=== PATIENT | female | born 1990 | race Caucasian/White ===

== ENCOUNTER 2016-08-21 04:15 | Emergency (ER) | payer OTHER ==
[2016-08-21 04:24] VITALS: TEMP 98.1; BMI 24.9
--- NOTE | 2016-08-21 04:29 | PDOC ---
History of Present Illness - General Chief Complaint: Pain, Acute Stated Complaint: ABDOMINAL PAIN Time Seen by Provider: 08/21/16 04:26 History Source: Patient Exam Limitations: No Limitations - History of Present Illness Initial Comments: 08/21/16 04:30 This is a 25-year-old female who comes in complaining of 3 days now progressive abdominal pain. Patient said she also has had some nausea and vomiting. Patient with some anorexia and fevers. Patient denies any chills. Or shortness of breath. Patient denies any urinary complaints of frequency, dysuria. Patient is sexually active but denies any vaginal discharge or odor. Patient denies any history of sexually transmitted diseases. PAST MEDICAL HISTORY: no significant history PAST SURGICAL HISTORY: no significant history FAMILY HISTORY: no pertinant history SOCIAL HISTORY: Pt lives with family and is employed. MEDICATIONS: reviewed ALLERGIES: As per nursing notes Review of Systems General: No fevers or chills, no weakness, no weight loss HEENT: No change in vision. No sore throat,. No ear pain CardioVascular: No chest pain or shortness of breath Respiratory:No cough, or wheezing. Gastrointestinal: no nausea, vomitting, diarrhea or constipation, No rectal bleeding, abdominal pain as per history of present illness Genitourinary: No dysuria, hematuria, or frequency Musculoskeletal: No joint or muscle pain or swelling Neurologic: No headache, vertigo, dizziness or loss of consciousness Psychiatric: nor depression Skin: No rashes or easy bruising Endocrine: no increased thirst or abnormal weight change Allergic: no skin or latex allergy All other systems reviewed and normal Exam: General: Well-nourished well-developed individual, no acute distress HEENT: Throat: Normal, tonsils normal, no erythema or exudate Neck: Supple, no meningeal signs, no lymphadenopathy Eyes::Pupils equal reactive and round, extraocular motion intact Chest: Nontender to palpation Cardiac: S1-S2 normal, regular rate and rhythm, no murmurs rubs or gallops Respiratory: Lungs clear to auscultation bilateral Abdomen: Soft, nondistended, normal bowel sounds, tender to palpation across lower abdomen with right lower quadrant greater than rest of abdomen. No guarding or rebound. Extremities: Warm, dry, no cyanosis, clubbing, or edema Skin: No rashes Neuro: Alert and oriented x3, nonfocal exam, grossly intact, normal gait Psych: Normal mood and affect Care of this patient was transferred to Dr. Ziegler at [address] scan is still pending.. Case discussed in detail with oncoming Emergency Physician including history, physical exam and ancillary studies. Oncoming Emergency Physician has assumed care for the patient and will complete the evaluation and treatment. Patient is aware of the plan. Pt is clinically unchanged and stable. Past History - Past Medical History Allergies/Adverse Reactions: Allergies Allergy/AdvReac Type Severity Reaction Status Date / Time No Known Allergies Allergy Verified 10/09/15 23:03 Home Medications: Ambulatory Orders Amox-Tr/K Cl [Augmentin - 500Mg Tablet] 1 tab PO TID #21 tab 08/21/16 Anemia: No Asthma: No Cancer: No CVA: No COPD: No CHF: No DVT: No Dementia: No Diabetes: No Dialysis: No - Immunization History Immunization Up to Date: Yes - Psycho/Social/Smoking Cessation Hx Anxiety: No Suicidal Ideation: No Smoking History: Never smoked Have you smoked in the past 12 months: Yes Information on smoking cessation initiated: Yes 'Breaking Loose' booklet given: 08/21/16 Hx Alcohol Use: No Drug/Substance Use Hx: No Substance Use Type: None Abd/GI Specific PMHX - Complaint Specific PMHX Colitis: No Diverticulitis: No Gall Bladder Disease: No GERD: No Hepatitis: No Irritable Bowel Synd (IBS): No *Physical Exam - Vital Signs Last Vital Signs Temp Pulse Resp BP Pulse Ox 98.1 F 110 H 16 122/75 100 08/21/16 04:22 08/21/16 04:22 08/21/16 04:22 08/21/16 04:22 08/21/16 04:22 ED Treatment Course - LABORATORY CBC & Chemistry Diagram: 08/21/16 04:35 08/21/16 04:35 *DC/Admit/Observation/Transfer Diagnosis at time of Disposition: Ruptured ovarian cyst, Nonspecific mesenteric adenitis - Discharge Dispostion Disposition: HOME Condition at time of disposition: Improved - Prescriptions Prescriptions: Amox-Tr/K Cl [Augmentin - 500Mg Tablet] 1 tab PO TID #21 tab - Referrals Referrals: Jana Beck MD [Staff Physician] - Olivier Bowling MD [Primary Care Provider] - 3 days Brayan Euceda MD [Staff Physician] - - Patient Instructions Printed Discharge Instructions: DI for Ovarian Cyst, DI for Abdominal Pain- Adult, DI for Mesenteric Adenitis-Adult Additional Instructions: Augmentin-one pill 3 times a day Warm compresses and rest Follow-up with [facility] early next week-call today for an appointment I am refering you to 2 [facility] MDs - call for appointment with one Followup with your primary care physician in 24-48 hours Return immediately if you worsen in any way Take your medications as directed - Post Discharge Activity Work/School Note: Back to Work
[2016-08-21] MEDS ORDERED: morphine CARPU-JECT 4 MG/1 ML DISP.SYRIN IVPUSH ONE (04:32)
[2016-08-21] MEDS ORDERED: SODIUM CHLORIDE 1,000 ML IV ONE (04:32)
[2016-08-21] MEDS ORDERED: ONDANSETRON 4 MG/2 ML VIAL IVPB ONE (04:32)
[2016-08-21] MEDS ORDERED: ONDANSETRON 4 MG/2 ML VIAL ONE (04:39)
[2016-08-21] MEDS ORDERED: morphine CARPU-JECT 10 MG/1 ML DISP.SYRIN ONE (04:39)
[2016-08-21 05:20] LABS: BASOPHIL 0.3 % (0-2.0); MCH 21.7 pg (25.7-33.7); MCHC 31.8 g/dl (32.0-36.0); MEAN CELL VOLUME 68.2 fl (80-96); MEAN PLT VOLUME 8.6 fl (7.5-11.1); NEUTROPHILS 81.3 % (42.8-82.8); PLATELET COUNT 263 K/MM3 (134-434); RDW 18.1 % (11.6-15.6); WHITE BLOOD COUNT 13.1 K/mm3 (4.0-10.0)
[2016-08-21 05:27] LABS: HYPOCHROMIA 2+; MICROCYTOSIS 1+
[2016-08-21 05:44] LABS: ALK PHOS 65 U/L (45-117); ANION GAP 10 (8-16); BILIRUBIN,TOTAL 0.3 mg/dL (0.2-1.0); CALCIUM 8.4 mg/dL (8.5-10.1); CO2 24 mmol/L (21-32); CREATININE 0.7 mg/dL (0.55-1.02); GLUCOSE,RANDOM 99 mg/dL (74-106); SGOT/AST 16 U/L (15-37); SGPT/ALT 23 U/L (12-78); TOT PROT 7.4 g/dl (6.4-8.2)
[2016-08-21 07:22] VITALS: BP 103/74; PULSE 81
--- NOTE | 2016-08-21 07:53 | PDOC ---
*Physical Exam - Vital Signs Last Vital Signs Temp Pulse Resp BP Pulse Ox 98.1 F 81 14 103/74 100 08/21/16 04:22 08/21/16 07:21 08/21/16 07:21 08/21/16 07:21 08/21/16 04:22 - Physical Exam Comments: 08/21/16 07:47 SIGN IN Sign-out received from outgoing Emergency Physician Pt interviewed and examined Ancillary studies reviewed This is a 25-year-old female who comes in complaining of 3 days now progressive abdominal pain. Patient said she also has had some nausea and vomiting. She had one episode of diarrhea Last menstrual period 3 weeks ago, normal and on time She denies any vaginal discharge spotting or bleeding She denies any dysuria urgency or frequency She denies any prior abdominal surgery To my exam There are hypoactive but present bowel sounds There is mild diffuse lower abdominal tenderness, mostly in the right lower quadrant, without guarding or rebound 08/21/16 07:59 Laboratory Results - last 24 hr 08/21/16 08/21/16 08/21/16 04:30 04:35 04:35 WBC 13.1 H RBC 4.44 Hgb 9.7 L Hct 30.3 L MCV 68.2 L MCHC 31.8 L RDW 18.1 H Plt Count 263 MPV 8.6 Neutrophils % 81.3 Lymphocytes % 11.2 Monocytes % 6.2 Eosinophils % 1.0 Basophils % 0.3 Hypochromic-Microcytic 2+ Microcytosis 1+ Sodium 139 Potassium 3.7 Chloride 105 Carbon Dioxide 24 Anion Gap 10 BUN 9 Creatinine 0.7 Creat Clearance w eGFR > 60 Random Glucose 99 Calcium 8.4 L Total Bilirubin 0.3 AST 16 ALT 23 Alkaline Phosphatase 65 Total Protein 7.4 Albumin 4.0 Urine HCG, Qual Negative Genna, surgical PA at bedside CT of the abdomen and pelvis with oral and IV contrast There are slightly prominent mesenteric lymph nodes in the right lower quadrant , possibly mesenteric adenitis There is no evidence of pneumoperitoneum, bowel obstruction, or intra-abdominal abscess There is no CT evidence of acute appendicitis or diverticulitis Examination of the pelvis demonstrates cystic changes and both ovaries with a trace amount of free fluid in the cul-de-sac on the left 08/21/16 09:12 will check pelvic us 08/21/16 10:13 Pt refuses to stay any longer to wait for US, wants to go NOW US called - still have another study they are doing now reviewed all results with pt will refer to [facility] Impression ruptured ovarian cyst mesenteric adenitis ED Treatment Course - LABORATORY CBC & Chemistry Diagram: 08/21/16 04:35 08/21/16 04:35 - ADDITIONAL ORDERS Additional order review: Laboratory Results 08/21/16 08/21/16 04:35 04:30 Sodium 139 Potassium 3.7 Chloride 105 Carbon Dioxide 24 Anion Gap 10 BUN 9 Creatinine 0.7 Creat Clearance w eGFR > 60 Random Glucose 99 Calcium 8.4 L Total Bilirubin 0.3 AST 16 ALT 23 Alkaline Phosphatase 65 Total Protein 7.4 Albumin 4.0 Urine HCG, Qual Negative 08/21/16 04:35 RBC 4.44 MCV 68.2 L MCHC 31.8 L RDW 18.1 H MPV 8.6 Neutrophils % 81.3 Lymphocytes % 11.2 Monocytes % 6.2 Eosinophils % 1.0 Basophils % 0.3 - Medications Given in the ED: ED Medications Discontinued Medications Generic Name Dose Route Start Last Admin Trade Name Freq PRN Reason Stop Dose Admin Sodium Chloride 1,000 mls @ 1,000 mls/hr 08/21/16 04:32 08/21/16 04:37 Normal Saline - IV 08/21/16 05:31 1,000 mls/hr .Q1H ONE Administration Morphine Sulfate 4 mg 08/21/16 04:32 08/21/16 04:42 Morphine Injection - IVPUSH 08/21/16 04:33 4 mg ONCE ONE Administration Ondansetron HCl 4 mg 08/21/16 04:32 08/21/16 04:43 Zofran Injection IVPB 08/21/16 04:33 4 mg ONCE ONE Administration *DC/Admit/Observation/Transfer Diagnosis at time of Disposition: Ruptured ovarian cyst, Nonspecific mesenteric adenitis - Discharge Dispostion Disposition: HOME Condition at time of disposition: Improved - Prescriptions Prescriptions: Amox-Tr/K Cl [Augmentin - 500Mg Tablet] 1 tab PO TID #21 tab - Referrals Referrals: Olivier Bowling MD [Primary Care Provider] - 3 days Jana Beck MD [Staff Physician] - Brayan Euceda MD [Staff Physician] - - Patient Instructions Printed Discharge Instructions: DI for Ovarian Cyst, DI for Mesenteric Adenitis -Adult, DI for Abdominal Pain-Adult Additional Instructions: Augmentin-one pill 3 times a day Warm compresses and rest Follow-up with [facility]ERAP[facility] early next week-call today for an appointment I am refering you to 2 [facility] THERAPIST MDs - call for appointment with one Followup with your primary care physician in 24-48 hours Return immediately if you worsen in any way Take your medications as directed - Post Discharge Activity Work/School Note: Back to Work
== END 2016-08-21 10:25 | disposition home or self-care (01) ==
LOC: FER 04:15
PROC: 3E033NZ Introduction of Analgesics, Hypnotics, Sedatives into Peripheral Vein, Percutaneous Approach (ICD-10-PCS; principal; 2016-08-21)
PROC: 3E033GC Introduction of Other Therapeutic Substance into Peripheral Vein, Percutaneous Approach (ICD-10-PCS; 2016-08-21)
PROC: 3E0337Z Introduction of Electrolytic and Water Balance Substance into Peripheral Vein, Percutaneous Approach (ICD-10-PCS; 2016-08-21)
DX: I88.0 Nonspecific mesenteric lymphadenitis (principal); N83.209 Unspecified ovarian cyst, unspecified side
CPT/HCPCS: 36415; 74177-TC; 80053; 84703; 85025; 99284-25

== ENCOUNTER 2017-11-24 23:05 | Day surgery (SDC) | payer OTHER ==
--- NOTE | 2017-11-24 23:25 | PDOC ---
History of Present Illness - General Chief Complaint: Pain, Acute Stated Complaint: GENERALIZED ABD PAIN Time Seen by Provider: 11/24/17 23:24 History Source: Patient Exam Limitations: No Limitations - History of Present Illness Initial Comments: 11/24/17 23:30 This is a 26-year-old female who comes in complaining of one day of abdominal pain initially generalized and now more right lower quadrant. Patient is also complaining of some nausea but denies any vomiting or diarrhea. Patient is noted to be febrile here in the emergency room. Patient's last menstrual period was feet. This most. Patient is sexually active patient denies any vaginal discharge. Patient denies any history of STDs in the past. Patient denies any blood in her urine. Patient denies any back or flank pain. Patient denies any history of kidney stones or family history of renal colic PAST MEDICAL HISTORY: no significant history PAST SURGICAL HISTORY: no significant history FAMILY HISTORY: no pertinant history SOCIAL HISTORY: Pt lives with family and is employed. MEDICATIONS: reviewed ALLERGIES: As per nursing notes Review of Systems General: No fevers or chills, no weakness, no weight loss HEENT: No change in vision. No sore throat,. No ear pain CardioVascular: No chest pain or shortness of breath Respiratory:No cough, or wheezing. Gastrointestinal: no nausea, vomitting, diarrhea or constipation, No rectal bleeding Genitourinary: No dysuria, hematuria, or frequency Musculoskeletal: No joint or muscle pain or swelling Neurologic: No headache, vertigo, dizziness or loss of consciousness Psychiatric: nor depression Skin: No rashes or easy bruising Endocrine: no increased thirst or abnormal weight change Allergic: no skin or latex allergy All other systems reviewed and normal Exam: General: Well-nourished well-developed individual, no acute distress HEENT: Throat: Normal, tonsils normal, no erythema or exudate Neck: Supple, no meningeal signs, no lymphadenopathy Eyes::Pupils equal reactive and round, extraocular motion intact Chest: Nontender to palpation Cardiac: S1-S2 normal, regular rate and rhythm, no murmurs rubs or gallops Respiratory: Lungs clear to auscultation bilateral Abdomen: Soft, moderate amount of pain/tenderness on palpation of the right lower quadrant, there is no guarding or rebound. Extremities: Warm, dry, no cyanosis, clubbing, or edema Skin: No rashes Neuro: Alert and oriented x3, CN II - XII intact, nonfocal exam with normal strength, normal sensation, normal reflexes, normal gait, Psych: Normal mood and affect Medical decision making this is a 26-year-old female who comes in with one day of progressive right lower quadrant pain. differential diagnosis includes appendicitis, ovarian pathology, viral etiology , renal colic, We'll obtain a workup to include CBC, comp, lipase, urine, urine test , CT abdomen and pelvis. We'll reassess and evaluate results a workup. 11/25/17 12:19 reevaluation patient feels better post IV fluids and some pain medication patient's CAT scan is pending. 02:20 Reevaluation patient remains clinically stable and unchanged. CAT scan shows acute appendicitis but no perforation patient will be admitted to surgical service for removal of her appendix in the morning. Past History - Past Medical History Allergies/Adverse Reactions: Allergies Allergy/AdvReac Type Severity Reaction Status Date / Time No Known Allergies Allergy Verified 10/09/15 23:03 Home Medications: Ambulatory Orders NK [No Known Home Medication] 11/24/17 Anemia: No Asthma: No Cancer: No CVA: No COPD: No CHF: No DVT: No Dementia: No Diabetes: No Dialysis: No - Immunization History Immunization Up to Date: Yes - Suicide/Smoking/Psychosocial Hx Smoking History: Never smoked Have you smoked in the past 12 months: Yes Number of Cigarettes Smoked Daily: 0 Information on smoking cessation initiated: No 'Breaking Loose' booklet given: 08/21/16 Hx Alcohol Use: No Drug/Substance Use Hx: No Substance Use Type: None Abd/GI Specific PMHX - Complaint Specific PMHX Colitis: No Diverticulitis: No Gall Bladder Disease: No GERD: No Hepatitis: No Irritable Bowel Synd (IBS): No *Physical Exam - Vital Signs Last Vital Signs Temp Pulse Resp BP Pulse Ox 100.3 F H 90 15 100/63 100 11/24/17 23:11 11/24/17 23:11 11/24/17 23:11 11/24/17 23:11 11/24/17 23:11 ED Treatment Course - LABORATORY CBC & Chemistry Diagram: 11/24/17 23:50 11/24/17 23:50 *DC/Admit/Observation/Transfer Diagnosis at time of Disposition: Acute appendicitis Qualifiers: Acute appendicitis type: unspecified acute appendicitis type Qualified Code(s) : K35.80 - Unspecified acute appendicitis - Discharge Dispostion Disposition: HOME Condition at time of disposition: Good Decision to Admit order: Yes - Referrals - Patient Instructions - Post Discharge Activity
[2017-11-24] MEDS ORDERED: morphine CARPU-JECT 4 MG/1 ML DISP.SYRIN IVPUSH ONE (23:29)
[2017-11-24] MEDS ORDERED: SODIUM CHLORIDE 1,000 ML IV ONE (23:29)
[2017-11-24] MEDS ORDERED: morphine SULFATE 4 MG/ML VIAL ONE (23:59)
[2017-11-25 00:12] LABS: URINE APPEARANCE CLEAR; URINE BILIRUBIN NEGATIVE (<2.0 mg/dL); URINE BLOOD NEGATIVE (NEGATIVE); URINE COLOR LTYELLOW; URINE GLUCOSE (UA) NEGATIVE (NEGATIVE); URINE KETONE NEGATIVE (NEGATIVE); URINE LEUK ESTERASE NEGATIVE (NEGATIVE); URINE NITRITE NEGATIVE (NEGATIVE); URINE PROTEIN NEGATIVE (NEGATIVE); URINE UROBILINOGEN NEGATIVE mg/dL (0.2-1.0)
[2017-11-25 00:16] LABS: HCG,QUALITATIVE URINE NEGATIVE
[2017-11-25 00:19] LABS: RBC 4.44 M/mm3 (3.60-5.2); WHITE BLOOD COUNT 13.5 K/mm3 (4.0-10.8)
[2017-11-25 00:20] LABS: BASO % 0.2 % (0-2.0); EOS % 1.4 % (0-4.5); HEMATOCRIT 30.1 % (32.4-45.2); HEMOGLOBIN 9.4 GM/dl (10.7-15.3); MCH 21.1 pg (25.7-33.7); MCHC 31.2 g/dl (32.0-36.0); MEAN CELL VOLUME 67.7 fl (80-96); MEAN PLT VOLUME 8.2 fl (7.5-11.1); MONO % 5.5 % (3.8-10.2); NEUT % 82.9 % (42.8-82.8); PLATELET COUNT 344 K/MM3 (134-434); RDW 19.4 % (11.6-15.6)
[2017-11-25 00:21] LABS: ADD RBC MORPHOLOGY YES
[2017-11-25 00:24] LABS: LIPASE 134 U/L (73-393)
[2017-11-25 00:31] LABS: ALK PHOS 59 U/L (45-117); ANION GAP 4 (8-16); BILIRUBIN,TOTAL 0.4 mg/dL (0.2-1.0); BLOOD UREA NITROGEN 17 mg/dL (7-18); CALCIUM 8.4 mg/dL (8.5-10.1); CHLORIDE 109 mmol/L (98-107); CO2 27 mmol/L (21-32); CREATININE 0.8 mg/dL (0.55-1.02); GLUCOSE,RANDOM 101 mg/dL (74-106); SGOT/AST 15 U/L (15-37); SGPT/ALT 21 U/L (12-78); SODIUM 140 mmol/L (136-145); TOT PROT 7.4 g/dl (6.4-8.2)
[2017-11-25 01:22] LABS: ANISOCYTOSIS 1+; TARGET CELLS 1+
[2017-11-25] MEDS ORDERED: PIPERACILLIN/TAZOB 3.375 GM 3.375 GM in DEXTROSE 5%-WATER - 50 ML IVPB ONE ×2 (02:17→10:00)
[2017-11-25] MEDS ORDERED: PIPERACILLIN/TAZOBACTAM 3.375 GM VIAL IVPB ONE (02:23)
[2017-11-25 03:35] VITALS: BMI 26.7
[2017-11-25] MEDS ORDERED: ACETAMINOPHEN 1000 MG/100 ML VIAL (NON FORMULARY) IVPB PRN (03:43)
[2017-11-25] MEDS ORDERED: LACTATED RINGERS SOLUTION 1,000 ML IV SCH (03:45)
[2017-11-25] MEDS ORDERED: PIPERACILLIN/TAZOB 3.375 GM 3.375 GM in DEXTROSE 5%-WATER - 50 ML IVPB SCH (10:00)
[2017-11-25] MEDS ORDERED: PIPERACILLIN/TAZOB 3.375 GM 3.375 GM/50 ML BAG IVPB ONE (10:00)
--- NOTE | 2017-11-25 10:07 | HP ---
Admitting History and Physical - Admission Chief Complaint: Abdominal pain in right side with nausea History of Present Illness: I was called to evaluate a 26 year old female with no significant PMHx presented to ED yesterday evening c/o one day of sudden onset mid abdominal pain and right lower quadrant pain with nausea, denied fevers/chills, vomiting, diarrhea, constipation. Vitals stable in ED, Ur negative, mild elevated WBC, with significant RLQ tenderness. Decision was made to obtain a CT scan abdomen/pelvis which revealed acute appendicitis. History Source: Patient Limitations to Obtaining History: No Limitations - Past Medical History ...: No - Past Surgical History Past Surgical History: Yes: None - Smoking History Smoking history: Never smoked Have you smoked in the past 12 months: No Aproximately how many cigarettes per day: 0 - Alcohol/Substance Use Hx Alcohol Use: No Home Medications - Allergies Allergies/Adverse Reactions: Allergies Allergy/AdvReac Type Severity Reaction Status Date / Time No Known Allergies Allergy Verified 10/09/15 23:03 - Home Medications Home Medications: Ambulatory Orders NK [No Known Home Medication] 11/24/17 Family Disease History - Family Disease History Family History: Unremarkable Review of Systems - Review of Systems Constitutional: denies: Chills, Fever Eyes: denies: Blurred Vision, Photophobia HENT: denies: Difficult Swallowing, Throat Pain Neck: denies: Decreased ROM, Pain on Movement Respiratory: denies: Cough, Wheezing Gastrointestinal: reports: Abdominal Pain (sharp, constant right lower quadrant , worse with movement), Nausea. denies: Vomiting Genitourinary: denies: Burning, Discharge, Dysuria Musculoskeletal: denies: Back Pain, Muscle Weakness Integumentary: denies: Erythema, Rash Neurological: denies: Change in LOC, Confusion Hematology/Lymphatic: denies: Easily Bruised, Swollen Glands Psychiatric: denies: Anxiety, Depression Physical Examination Vital Signs: Vital Signs Temperature 98.2 F 11/25/17 03:02 Pulse Rate 79 11/25/17 03:02 Respiratory Rate 20 11/25/17 03:02 Blood Pressure 113/60 11/25/17 03:02 O2 Sat by Pulse Oximetry (%) 100 11/25/17 08:12 Constitutional: Yes: No Distress, Calm Eyes: Yes: Conjunctiva Clear, EOM Intact HENT: Yes: Atraumatic, Normocephalic Neck: Yes: Supple, Trachea Midline Cardiovascular: Yes: Regular Rate and Rhythm. No: Tachycardia Respiratory: Yes: Regular, CTA Bilaterally Gastrointestinal: Yes: Soft, Abdomen, Obese, Hypoactive Bowel Sounds, Tenderness (siginficant tenderness in entire right lower qudrant). No: Hernia, Tenderness, Rebound ...Rectal Exam: Yes: Deferred Renal/: No: Coleman Present, Hematuria Musculoskeletal: No: Back Pain, Muscle Weakness Extremities: No: Cool, Cyanosis Edema: No Integumentary: No: Erythema, Jaundice Neurological: Yes: Alert, Oriented Psychiatric: Yes: Alert, Oriented Labs: CBC, BMP 11/24/17 23:50 11/24/17 23:50 Imaging - Results Cat Scan: Image Reviewed (I personally reviewed the image and agree with Radiologists finding of a thickened and fluid filled appendix measuring approx. 1 cm and with mild periappendicael fat stranding c/w appendicitis. NO other gross intra-abdominal abnormality) Problem List - Problems (1) Abdominal pain Assessment/Plan: Patient found to have clinical and radiologic evidence of acute appendicitis. CT scan images reviewed by me personally. Admit NPO, IV fluids, IV Antibiotics. Will take to OR urgently for lapaoscopic possible open appendectomy. Reviewed all risks and benefits of this surgery with the patient at length and patient agrees to proceed to surgery. Code(s): R10.9 - UNSPECIFIED ABDOMINAL PAIN Qualifiers: Abdominal location: right lower quadrant Qualified Code(s): R10.31 - Right lower quadrant pain (2) Nausea alone Assessment/Plan: Patient with history of nausea with abdominal pain, no vomiting, no other GI symptoms. Symptoms have improved with IV fluids and IV Abx. Code(s): R11.0 - NAUSEA (3) Acute appendicitis Code(s): K35.80 - UNSPECIFIED ACUTE APPENDICITIS Qualifiers: Acute appendicitis type: unspecified acute appendicitis type Qualified Code (s): K35.80 - Unspecified acute appendicitis
[2017-11-25] MEDS ORDERED: fentaNYL CITRATE 250 MCG/5 ML VIAL ONE (11:20)
[2017-11-25] MEDS ORDERED: ROCURONIUM BROMIDE 50 MG/5 ML VIAL ONE (11:21)
[2017-11-25] MEDS ORDERED: PROPOFOL 20 ML ONE (11:21)
[2017-11-25] MEDS ORDERED: SUCCINYLCHOLINE CHLORIDE 200 MG/10 ML VIAL ONE (11:21)
[2017-11-25] MEDS ORDERED: MIDAZOLAM HCL 2 MG/2 ML SINGLE DOSE VIAL ONE (11:21)
[2017-11-25] MEDS ORDERED: DEXAMETHASONE SOD PHOSPHATE 4 MG/1 ML VIAL ONE (11:22)
[2017-11-25] MEDS ORDERED: LIDOCAINE HCL/PF 2% SDV 5ML VIAL ONE (11:22)
[2017-11-25] MEDS ORDERED: ONDANSETRON 4 MG/2 ML VIAL ONE ×2 (11:22→13:52)
[2017-11-25] MEDS ORDERED: BUPIVACAINE HCL/EPINEPHRINE/PF 30 ML VIAL IJ ONE (13:09)
[2017-11-25] MEDS ORDERED: NEOSTIGMINE METHYLSULFATE 0.5 MG/ML - 10 ML MDV ONE (13:11)
[2017-11-25] MEDS ORDERED: GLYCOPYRROLATE 0.2 MG/1 ML VIAL ONE (13:12)
[2017-11-25] MEDS ORDERED: ONDANSETRON 4 MG/2 ML VIAL IVPUSH PRN (13:34)
[2017-11-25] MEDS ORDERED: oxyCODONE HCL 5 MG TABLET PO PRN (13:34)
[2017-11-25 13:43] VITALS: TEMP 98.7
[2017-11-25] MEDS ORDERED: ACETAMINOPHEN 1000 MG/100 ML VIAL (NON FORMULARY) IVPB ONE ×2 (13:53→14:10)
[2017-11-25] MEDS ORDERED: ACETAMINOPHEN INJECTION 100 ML IVPB ONE (13:53)
[2017-11-25] MEDS ORDERED: ONDANSETRON 4 MG/2 ML VIAL IVPUSH ONE (14:02)
--- NOTE | 2017-11-25 14:22 | DS ---
Physical Examination Vital Signs: Vital Signs Temperature 98.7 F 11/25/17 13:28 Pulse Rate 56 L 11/25/17 13:38 Respiratory Rate 16 11/25/17 13:38 Blood Pressure 99/56 11/25/17 13:38 O2 Sat by Pulse Oximetry (%) 100 11/25/17 13:38 Constitutional: Yes: No Distress, Calm Eyes: Yes: Conjunctiva Clear, EOM Intact HENT: Yes: Atraumatic, Normocephalic Cardiovascular: Yes: Regular Rate and Rhythm Respiratory: Yes: Regular, CTA Bilaterally Gastrointestinal: Yes: Soft, Abdomen, Obese, Tenderness (mild incisional) ...Rectal Exam: Yes: Deferred Extremities: No: Cool, Cyanosis Edema: No Wound/Incision: Yes: Clean/Dry, Well Approximated (with bioglue), Open to air Neurological: Yes: Alert, Oriented Psychiatric: Yes: Alert, Oriented Labs: CBC, BMP Discharge Summary Reason For Visit: ACUTE APPENDICITIS Current Active Problems Abdominal pain (Acute) Acute appendicitis (Acute) Nausea alone (Acute) Procedures: Principal: laparoscopic appendectomy Hospital Course: Patient admitted for clinical and radiologic evidence of acute appendicitis. Patient taken to OR for laparoscopic appendectomy. Tolerated procedure well. Remains stable on floor with pain well controlled, ambulating, tolerating PO. Discharged home in stable condition. Follow up with Dr. Vidales in 2 weeks. Condition: Good - Instructions Diet, Activity, Other Instructions: Postoperative instructions: You had a laparoscopic appendectomy on 11/24/[address] Yash Vidales of [facility]. Activity: Resume your usual activities gradually, but no lifting more than 10- 15 pounds for 2 weeks. You may shower daily starting tomorrow, just pat the incision areas dry. Eat lightly at first, but advance to your usual diet as tolerated. Pain: For pain, you may use and alternate Tylenol (acetaminophen) and/or ibuprofen every 6 hours each as needed; this means that you can take one OR the other at 3-hour intervals. If you are prescribed a Tylenol/narcotic combination for severe pain, use it instead of plain Tylenol as needed and switch back when your pain starts decreasing. Do not take more than 4000mg of acetaminophen in a day. Take medications as prescribed or indicated on the labeling. Follow-up: Call Dr. Vidales' office at [phone] to make your postop appointment (Wednesday ~2 weeks after surgery). Clinic is held in the Diagnostic Center on the first floor of [facility]. Call the office if you have: * increasing pain not responsive to pain medication * fever of 101F or higher * vomiting * unusual or increasing bleeding or drainage from wounds * increasing redness or swelling at wound sites * inability to urinate Also, see your primary medical doctor within 1-2 weeks. Disposition: HOME - Home Medications Comprehensive Discharge Medication List: Ambulatory Orders NK [No Known Home Medication] 11/24/17
--- NOTE | 2017-11-25 14:30 | OP ---
Operative Note - Note: Operative Date: 11/24/17 Pre-Operative Diagnosis: acute appendicitis Operation: laparoscopic appendectomy Findings: Thickened inflamed appendix, no evidence perforation, no abscess. Surgeon: Yash Vidales Anesthesiologist/PATIENT RESOURCE SPECIALIST: An Portillo Anesthesia: General Specimens Removed: appendix Estimated Blood Loss (mls): 10 Fluid Volume Replaced (mls): 300 Operative Report Dictated: Yes
--- NOTE | 2017-11-25 15:02 | OP ---
DATE OF OPERATION: 11/25/2017 PREOPERATIVE DIAGNOSIS: Acute appendicitis. POSTOPERATIVE DIAGNOSIS: Acute appendicitis. FINDINGS: Thickened, inflamed appendix. No evidence of perforation, no abscess. SURGEON: Yash Vidales MD [employer] ARCHITECT: None. ANESTHESIOLOGIST: An Portillo MD ANESTHESIA: General. SPECIMENS: Appendix. ESTIMATED BLOOD LOSS: 10 mL. FLUID REPLACED: 300 mL. PROCEDURE DETAILS: After informed consent was obtained, patient was brought to the operating room and placed supine on the operating table in standard fashion. Endotracheal anesthesia was administered in a standard fashion. Bilateral sequential compression devices were placed on bilateral lower extremities. Abdomen was prepped and draped in a sterile fashion, and abdominal cavity was entered using a Veress needle technique in the following fashion: A small incision was made in the left subcostal margin at the midclavicular line, and a Veress needle was placed within the abdomen. There was saline water test was performed and the abdomen was then insufflated to 12 mmHg with CO2 gas. Next, the abdominal cavity was entered with a 5-mm 30-degree laparoscope using a 5-mm Visiport technique. The area under the Veress needle entrance was inspected. There was no evidence of bleeding or injury. The laparoscope was exchanged for a 5-mm 30-degree laparoscope and the abdomen was inspected. Next, a 12-mm blunt trocar was placed in the infraumbilical location, and a 5-mm port was placed in the left lower quadrant. The abdomen was inspected and the appendix was noted to be enlarged and inflamed, with no evidence of perforation, no abscess. The appendix was noted to curl around somewhat retrocecally, so the peritoneal reflection of the cecum and the appendix along the white line of Toldt were transected using hook electrocautery. The appendiceal artery was identified and clipped and transected, and the base of the cecum was cleared off completely. The base of the appendix was noted to be normal diameter and soft. An Endo DURGA stapler with a johnson cartridge load was utilized to come across the base of the appendix. Appendix was then placed in an EndoCatch bag and removed from the abdomen. The staple line was inspected. There as no active bleeding noted. The fascia at the 12-mm port site was then repaired using No. 1 PDS suture using Endo Close technique. Approximately 25 mL of 0.25% Marcaine with epinephrine was utilized to inject the port sites under direct visualization to incorporate the peritoneum and the fascia. Good hemostasis was noted in the abdomen, and the abdomen was desufflated prior removing the last port. Skin was approximated with 4-0 Biosyn and Dermabond. The patient tolerated the procedure well and was taken to the PACU in stable condition. MD PELON CALLAHAN/[id number] MTDD
[2017-11-25 15:29] VITALS: BP 100/64; PULSE 79
[2017-11-25] MEDS ORDERED: IBUPROFEN 600 MG TABLET (FP) PO SCH (17:00)
[2017-11-25] MEDS ORDERED: ACETAMINOPHEN 325 MG TABLET (FP) PO ONE (18:32)
[2017-11-25] MEDS ORDERED: ACETAMINOPHEN 325 MG TABLET (FP) PO SCH ×2 (20:00)
--- NOTE | 2017-11-29 14:58 | PATH ---
Surgical Pathology Report Patient Name: VANDANA FUNG [facility]. Rec. #: [id number] /Age/Gender: 1990 (Age: 26) / F Account: [id number] Location: [facility] Taken: 11/25/2017 Received: 11/25/2017 Reported: 11/29/2017 Physicians: Yash Vidales M.D. Specimen(s) Received APPENDIX Clinical History Acute appendicitis Final Diagnosis APPENDIX, REMOVAL: ACUTE APPENDICITIS AND PERIAPPENDICITIS. Electronically Signed Rosa Oliver M.D. Gross Description Received in formalin, labeled "appendix," is a 7 cm. in length vermiform appendix with a stapled margin of resection and moderate attached fat. The serosa is johnson-levin with attached exudate. Sectioning reveals a focally hemorrhagic lumen. The wall of the appendix averages 0.1 cm. in thickness. Worm Packer sections are submitted in one cassette. 11/26/2017 saudi11/26/2017
== END 2017-11-25 19:00 | disposition home or self-care (01) ==
LOC: FER 23:05 → FM/S 11-25 02:20 → UNDOADMIN 11-25 02:20 → FM/S 11-25 03:02 → FASU 11-25 03:02 → FM/S 11-25 13:52 → FASU 11-25 13:52
PROVIDERS: ATTEND Surgery
PROC: 0DTJ4ZZ Resection of Appendix, Percutaneous Endoscopic Approach (ICD-10-PCS; principal; 2017-11-25 12:26)
DX: K35.80 Unspecified acute appendicitis (principal)
CPT/HCPCS: 36415; 74177-TC; 80053; 81003; 83690; 84703; 85025; 88304-TC; 94760; 99283-25; J0131; J7030

== ENCOUNTER 2018-08-05 22:16 | Emergency (ER) | payer OTHER ==
[2018-08-05 22:28] VITALS: BP 127/80; PULSE 78; TEMP 98.4; BMI 27.9
[2018-08-05 22:44] LABS: URINE BILIRUBIN Negative (NEGATIVE); URINE GLUCOSE (UA) Negative (NEGATIVE); URINE KETONE Negative (NEGATIVE); URINE LEUK ESTERASE TRACE (NEGATIVE); URINE NITRITE Negative (NEGATIVE); URINE PROTEIN Negative (NEGATIVE); URINE UROBILINOGEN 0.2 (0.2-1.0)
[2018-08-05 22:46] LABS: URINE APPEARANCE Not; URINE COLOR Not
[2018-08-05 22:55] LABS: HCG,QUALITATIVE URINE Negative
[2018-08-05 23:14] LABS: BASO % 0.4 % (0-2.0); EOS % 4.1 % (0-4.5); HEMATOCRIT 34.6 % (32.4-45.2); HEMOGLOBIN 10.8 GM/dl (10.7-15.3); LYMPH % 35.8 % (8-40); MCH 23.5 pg (25.7-33.7); MCHC 31.1 g/dl (32.0-36.0); MEAN CELL VOLUME 75.4 fl (80-96); MEAN PLT VOLUME 8.4 fl (7.5-11.1); MONO % 6.4 % (3.8-10.2); NEUT % 53.3 % (42.8-82.8); PLATELET COUNT 320 K/MM3 (134-434); RBC 4.59 M/mm3 (3.60-5.2); RDW 17.3 % (11.6-15.6); WHITE BLOOD COUNT 9.1 K/mm3 (4.0-10.8)
[2018-08-05 23:15] LABS: ADD RBC MORPHOLOGY YES
--- NOTE | 2018-08-05 23:18 | PDOC ---
History of Present Illness - General Chief Complaint: Pain Stated Complaint: PAIN Time Seen by Provider: 08/05/18 22:19 - History of Present Illness Initial Comments: 08/05/18 23:11 The patient is a 27 year old female, with a significant PMH of an appendectomy 6 months ago, who presents to the emergency department with intermittent left lower quadrant pain, which she describes as sharp, beginning about 4 months ago. Patient states the pain has progressively gotten worse over the past week and is exacerbated when sitting or standing, and is relieved with laying down. She reports history of constipation, but relieved a bowel movement yesterday, which she states is normal for her. Patient states after images taken back in October, she was advised to get a ultrasound but never followed up with a [facility]. LMP 2 /3-08/02. Dneies vaginal DC, dysuria, hematuria, frequency. Sexually active with 1 partner. Review of CTAP in EMR from 10/2017 reveals cystic changes to both ovaries. The patient denies chest pain, headache and dizziness. Denies fever, chills, nausea, vomit, diarrhea. Denies weakness/numbness Allergies: NKA Past surgical history: Appendectomy (11/25/17) Social history: Occasional hookah use. Past History - Past Medical History Allergies/Adverse Reactions: Allergies Allergy/AdvReac Type Severity Reaction Status Date / Time No Known Allergies Allergy Verified 10/09/15 23:03 Home Medications: Ambulatory Orders NK [No Known Home Medication] 11/24/17 Anemia: Yes (iron deficiency anemia) Asthma: No Cancer: No CVA: No COPD: No CHF: No DVT: No Dementia: No Diabetes: No Dialysis: No - Surgical History Appendectomy: Yes - Immunization History Immunization Up to Date: Yes - Suicide/Smoking/Psychosocial Hx Smoking History: Never smoked Have you smoked in the past 12 months: No Number of Cigarettes Smoked Daily: 0 'Breaking Loose' booklet given: 08/21/16 Hx Alcohol Use: No Drug/Substance Use Hx: No Substance Use Type: None Review of Systems - Review of Systems Comments:: 08/05/18 23:14 GENERAL/CONSTITUTIONAL: No fever or chills. No weakness. HEAD, EYES, EARS, NOSE AND THROAT: No change in vision. No ear pain or discharge. No sore throat. GASTROINTESTINAL: (+) Left lower quadrant pain. No nausea, vomiting, diarrhea or constipation. GENITOURINARY: No dysuria, frequency, or change in urination. CARDIOVASCULAR: No chest pain or shortness of breath. RESPIRATORY: No cough, wheezing, or hemoptysis. MUSCULOSKELETAL: No joint or muscle swelling or pain. No neck or back pain. SKIN: No rash NEUROLOGIC: No headache, vertigo, loss of consciousness, or change in strength/ sensation. ENDOCRINE: No increased thirst. No abnormal weight change. HEMATOLOGIC/LYMPHATIC: No anemia, easy bleeding, or history of blood clots. ALLERGIC/IMMUNOLOGIC: No hives or skin allergy. *Physical Exam - Vital Signs Last Vital Signs Temp Pulse Resp BP Pulse Ox 98.4 F 78 16 127/80 100 08/05/18 22:23 08/05/18 22:23 08/05/18 22:23 08/05/18 22:23 08/05/18 22:23 - Physical Exam Comments: 08/05/18 23:14 GENERAL: Awake, alert, and fully oriented, in no acute distress HEAD: No signs of trauma EYES: PERRLA, EOMI, sclera anicteric, conjunctiva clear LUNGS: Breath sounds equal, clear to auscultation bilaterally. No wheezes, and no crackles HEART: Regular rate and rhythm, normal S1 and S2, no murmurs, rubs or gallops ABDOMEN: Soft, nontender, normoactive bowel sounds. No guarding, no rebound. No masses : normal external genitalia, closed cervix. No discharge in vault. +L>R adnexal ttp, no midline ttp. No CMT EXTREMITIES: Normal range of motion, no edema. No clubbing or cyanosis. No cords, erythema, or tenderness NEUROLOGICAL: Normal speech, cranial nerves intact, equal strength and sensation b/l. Normal gait. SKIN: Warm, Dry, normal turgor, no rashes or lesions noted. Moderate Sedation - Procedure Monitoring Vital Signs: Procedure Monitoring Vital Signs Temperature 98.4 F 08/05/18 22:23 Pulse Rate 78 08/05/18 22:23 Respiratory Rate 16 08/05/18 22:23 Blood Pressure 127/80 08/05/18 22:23 O2 Sat by Pulse Oximetry (%) 100 08/05/18 22:23 ED Treatment Course - LABORATORY CBC & Chemistry Diagram: 08/05/18 22:55 08/05/18 22:55 - ADDITIONAL ORDERS Additional order review: Laboratory Results 08/05/18 22:40 Urine Color Not Urine Appearance Not Urine pH 6.0 Ur Specific [place] >= 1.030 Urine Protein Negative Urine Glucose (UA) Negative Urine Ketones Negative Urine Blood Trace-lysed H Urine Nitrite Negative Urine Bilirubin Negative Urine Urobilinogen 0.2 Ur Leukocyte Esterase Trace H Urine HCG, Qual Negative - RADIOLOGY Radiology Studies Ordered: Category Date Time Status TRANSVAGINAL ULTRASOUND US [US] Stat Ultrasound 08/05/18 23:05 Ordered Medical Decision Making - Medical Decision Making 08/05/18 23:18 27yo F presents to the ED with months of progressive intermittent LLQ pain. Vitals wnl. Exam with b/l adnexal ttp L>R. DDx includes but not limited to ovarian cysts vs endometriosis vs diverticulitis. Unlikely diverticulitis as pt with no WBC count, no other GI sxs, and no abd ttp. Pt declines pain medications for now. 08/06/18 00:42 TVUS with 1cm L sided ovarian cyst Pain well controlled Pt to f/u with [facility], return precautions given Stable for DC home I discussed the physical exam findings, ancillary test results and final diagnoses with the patient. I answered all of the patient's questions. The patient was satisfied with the care received and felt comfortable with the discharge plan and treatment plan. The patient will call their primary care physician within 24 hours to arrange follow-up and will return to the Emergency Department with any new, persistent or worsening symptoms. *DC/Admit/Observation/Transfer Diagnosis at time of Disposition: Ovarian cyst, Abdominal pain, LLQ pain - Discharge Dispostion Disposition: HOME Condition at time of disposition: Stable Decision to Admit order: No - Referrals Referrals: Luis Anthony MD [Staff Physician] - - Patient Instructions Printed Discharge Instructions: DI for Ovarian Cyst Additional Instructions: Follow up with Dr. Anthony within 1 week for your ovarian cyst Take motrin 600mg as needed for pain every 6 hours Return to the emergency department if you have any new, worsening, or concerning symptoms - Post Discharge Activity - Attestations Physician Attestion: 08/06/18 00:44 I, Dr. Jose Landon MD, attest that this document has been prepared under my direction and personally reviewed by me in its entirety. I further attest, that it accurately reflects all work, treatment, procedures and medical decision -making performed by me.
[2018-08-05 23:23] LABS: ALBUMIN 4.3 g/dl (3.4-5.0); ALK PHOS 70 U/L (45-117); ANION GAP 8 MMOL/L (8-16); BILIRUBIN,TOTAL 0.3 mg/dl (0.2-1); BLOOD UREA NITROGEN 17 mg/dl (7-18); CHLORIDE 104 mmol/L (98-107); CO2 25 mmol/L (21-32); CREATININE 0.6 mg/dl (0.55-1.3); GLUCOSE,RANDOM 106 mg/dl (74-106); POTASSIUM 3.8 mmol/L (3.5-5.1); SGOT/AST 19 U/L (15-37); SGPT/ALT 16 U/L (13-61); SODIUM 137 mmol/L (136-145); TOT PROT 7.7 g/dl (6.4-8.2)
[2018-08-05 23:27] LABS: EPI CELLS 1+ /HPF
[2018-08-05 23:30] LABS: ANISOCYTOSIS 1+; TEAR DROP CELLS OCCASIONAL
[2018-08-05 23:31] LABS: OVALOCYTE 1+
[2018-08-06] MEDS ORDERED: KETOROLAC TROMETHAMINE 15 MG/ML VIAL ONE (00:48)
[2018-08-06] MEDS ORDERED: KETOROLAC TROMETHAMINE 15 MG/ML VIAL IVPUSH ONE (00:48)
== END 2018-08-06 00:53 | disposition home or self-care (01) ==
LOC: FER 22:16
PROC: 3E0333Z Introduction of Anti-inflammatory into Peripheral Vein, Percutaneous Approach (ICD-10-PCS; principal; 2018-08-05)
DX: N83.202 Unspecified ovarian cyst, left side (principal); R10.32 Left lower quadrant pain
CPT/HCPCS: 36415; 76830-TC; 80053; 81003; 81015; 84703; 85025; 96374; 99282-25

== ENCOUNTER 2019-04-17 18:43 | Emergency (ER) | payer OTHER ==
[2019-04-17 19:05] VITALS: BP 110/65; PULSE 74; TEMP 98.1; BMI 28.3
--- NOTE | 2019-04-17 23:23 | PDOC ---
Documentation entered by Prerna Messina SCRIBE, acting as scribe for Xiao Cr MD. Xiao Cr MD: This documentation has been prepared by the patriceibeSiddharth Lincy, SCRIBE, under my direction and personally reviewed by me in its entirety. I confirm that the documentation accurately reflects all work, treatment, procedures, and medical decision making performed by me. History of Present Illness - General Chief Complaint: Pain Stated Complaint: LEFT SHOULDER PAIN History Source: Patient Exam Limitations: No Limitations - History of Present Illness Initial Comments: 04/17/19 20:07 The patient is a 28-year-old female with no reported past medical history who presents to the emergency department with left shoulder pain. The patient presents with 1 week of left shoulder pain that worsened in the last 3 days. The patient reports following up with PCP, who suggested massaging the area. The patient reports massaging the area, following the pain increased in severity. The patient reports the past 2 days shes been having difficulty taking off her shirt without assistance, secondary to the pain, no relief with Advil. The patient states the pain radiates from the shoulder up to the head, then down to the arm, associated with numbness and tingling. Denies trauma, injury, recent strenuous activity. Denies hx of neck or back issues. The patient reports a chronic history of back pain with deep breathing. Past History - Past Medical History Allergies/Adverse Reactions: Allergies Allergy/AdvReac Type Severity Reaction Status Date / Time No Known Allergies Allergy Verified 10/09/15 23:03 Home Medications: Ambulatory Orders Diclofenac Sodium [Voltaren -] 75 mg PO BID PRN #20 tablet. 04/17/19 Tizanidine HCl 2 mg PO BID PRN #12 tablet 04/17/19 Anemia: Yes (iron deficiency anemia) Asthma: No Cancer: No CVA: No COPD: No CHF: No DVT: No Dementia: No Diabetes: No Dialysis: No - Surgical History Appendectomy: Yes - Immunization History Immunization Up to Date: Yes - Psycho Social/Smoking Cessation Hx Smoking History: Never smoked Have you smoked in the past 12 months: No Number of Cigarettes Smoked Daily: 0 'Breaking Loose' booklet given: 08/21/16 Hx Alcohol Use: No Drug/Substance Use Hx: No Substance Use Type: None Review of Systems - Review of Systems Able to Perform ROS?: Yes Comments:: 04/17/19 20:07 CONSTITUTIONAL: Pt denies Fever, Chills, weakness. HEENT: denies vision changes, sore throat RESPIRATORY: Denies cough, sob, hemoptysis CARDIAC: denies chest pain, palpitations, lightheadedness, leg swelling ABD/GI: denies abd pain, nausea, vomiting, blood per rectum, melena, diarrhea : denies dysuria, frequency, discharge MSK: +left shoulder pain. denies back pain, other joint swelling SKIN: denies bruising, erythema, rash NEUROLOGICAL: denies headache, numbness, focal weakness, tingling, ataxia, weakness HEMATOLOGICAL: denies anemia, easy bruising, easy bleeding *Physical Exam - Vital Signs Last Vital Signs Temp Pulse Resp BP Pulse Ox 98.1 F 74 15 110/65 100 04/17/19 18:44 04/17/19 18:44 04/17/19 18:44 04/17/19 18:44 04/17/19 18:44 - Physical Exam Comments: 04/17/19 20:46 GENERAL: The patient is awake, alert, and fully oriented, in no acute distress. EXTREMITY: Mild tenderness to palpation of the midline C6-C7 cervical vertebral. Tenderness of the left Trapezius muscle. Anterior and superior shoulder pain with the abduction of the arm greater than 45 degrees. No ecchymosis, edema, or point tenderness. Distal left upper extremity nontender, no edema, or ecchymosis. Neurological: No sensory deficit present. ED Treatment Course - RADIOLOGY Radiology Studies Ordered: Category Date Time Status SHOULDER-LEFT [RAD] Stat Radiology 04/17/19 19:57 Taken ED Progress Note - Progress Note Progress Note: As noted above, this otherwise healthy 28-year-old woman presents with several day history of left shoulder discomfort, worse with movement of the shoulder as well as ongoing discomfort in her neck/left upper back. No history of overuse or injury either of the shoulder or neck area. Patient also describes paresthesias and numbness in the left arm. Exam as noted. Left shoulder x-ray performed: Preliminary interpretation by me-no evidence of fracture or dislocation Results discussed with the patient. Since she has symptoms consistent with shoulder strain/sprain as well as radiculopathy pain, referral will be given both to a neurologist and an orthopedic group. She should call office in a.m. and be seen by him within the next 2 to 3 days[address] Also, Dr. Keene /Dr. Collier group will be consulted regarding her shoulder pain. Meanwhile, diclofenac 75 mg up can be taken with food for pain up to twice a day She should refrain from strenuous upper body exercise until seen by referral doctors. She should return to the ER if she has persistent severe pain, numbness, paresthesias or if she has any weakness of her left arm Discharge - Discharge Information Problems reviewed: Yes Clinical Impression/Diagnosis: Left cervical radiculopathy Left shoulder strain Qualifiers: Encounter type: initial encounter Qualified Code(s): S46.912A - Strain of unspecified muscle, fascia and tendon at shoulder and upper arm level, left arm , initial encounter Condition: Stable Disposition: HOME - Additional Discharge Information Prescriptions: Diclofenac Sodium [Voltaren -] 75 mg PO BID PRN #20 tablet. PRN Reason: Pain Tizanidine HCl 2 mg PO BID PRN #12 tablet PRN Reason: Muscle Spasms - Follow up/Referral Referrals: Shen Langston MD [Staff Physician] - Liam Keene DO [Staff Physician] - - Patient Discharge Instructions Patient Printed Discharge Instructions: DI for Cervical Radiculopathy Additional Instructions: local warmth to left shoulder as needed Diclofenac 75mg twice a day as needed ; take with food Tizanidine 2 mg up to twice a day as needed for muscle spasm (take only at night ) Follow-up with neurologist () within the next few days (call office in the morning) Follow-up with orthopedist (/Dr Collier) within 1 week Avoid strenuous upper body activity until seen by orthopedist - Post Discharge Activity
== END 2019-04-17 21:01 | disposition home or self-care (01) ==
LOC: FER 18:43
DX: S46.912A Strain of unspecified muscle, fascia and tendon at shoulder and upper arm level, left arm, initial encounter (principal); M54.12 Radiculopathy, cervical region; X58.XXXA Exposure to other specified factors, initial encounter; Y93.89 Activity, other specified; Y92.89 Other specified places as the place of occurrence of the external cause
CPT/HCPCS: 73030-TC-LT-FY; 81025; 99282-25

== ENCOUNTER 2019-05-12 12:36 | Emergency (ER) | payer OTHER ==
[2019-05-12 13:05] VITALS: BMI 29.0
--- NOTE | 2019-05-12 13:22 | PDOC ---
History of Present Illness - General Chief Complaint: Lightheaded Stated Complaint: DIZZY AND POSTERIOR LEFT KNEE SMALL ECCHYMOSIS Time Seen by Provider: 05/12/19 12:51 History Source: Patient, Significant Other Exam Limitations: No Limitations - History of Present Illness Initial Comments: 05/12/19 13:19 Vero Austin is an otherwise healthy 28F who had an abdominal liposuction and BBL buttock enhancement 5 days ago and is not presenting with nausea, shortness of breath, and pain in her abdomen and buttocks. Patient had liposuction with buttock enhancement 5 days ago, and had been recovering well for the last 4 days. Has been taking 1/2 Percocet in AM, then other 1/2 two hours later, then 2 500mg PO Tylenol 2 hours later in this cycle for pain control for the last 5 days. Last night had diaphoresis and SOB, now has new onset nausea without vomiting, poor PO intake. Has abdominal pain and buttock pain s/p procedure, some bruising that has improved, pain with sitting and touching abdomen, new bruising noted to posterior L knee. Denies urinary sx , C/D. No sick contacts at home, no bad food eaten. Past History - Past Medical History Allergies/Adverse Reactions: Allergies Allergy/AdvReac Type Severity Reaction Status Date / Time No Known Allergies Allergy Verified 05/12/19 12:44 Home Medications: Ambulatory Orders Acetaminophen [Tylenol] 650 mg PO PRN 05/12/19 Ondansetron [Zofran *Odt*] 4 mg SL BID PRN #6 od.tablet 05/12/19 Oxycodone HCl/Acetaminophen [Oxycodone-Acetaminophen 5-325] 1 each PO PRN Anemia: Yes (iron deficiency anemia) Asthma: No Cancer: No CVA: No COPD: No CHF: No DVT: No Dementia: No Diabetes: No Dialysis: No - Surgical History Appendectomy: Yes - Immunization History Immunization Up to Date: Yes - Psycho Social/Smoking Cessation Hx Smoking History: Never smoked Have you smoked in the past 12 months: No Number of Cigarettes Smoked Daily: 0 Information on smoking cessation initiated: No 'Breaking Loose' booklet given: 08/21/16 Hx Alcohol Use: No Drug/Substance Use Hx: No Substance Use Type: None Review of Systems - Review of Systems Constitutional: No: Symptoms Reported HEENTM: No: Symptoms Reported Respiratory: Yes: Shortness of Breath Cardiac (ROS): No: Symptoms Reported ABD/GI: Yes: Abdominal Distended, Nausea. No: Constipated, Diarrhea, Poor Appetite, Poor Fluid Intake, Vomiting : No: Symptoms Reported Musculoskeletal: Yes: Other (buttock pain) Integumentary: Yes: Bruising, Lesions. No: Lumps, Pallor Neurological: No: Symptoms reported Endocrine: No: Symptoms Reported Hematologic/Lymphatic: No: Symptoms Reported All Other Systems: Reviewed and Negative *Physical Exam - Vital Signs Last Vital Signs Temp Pulse Resp BP Pulse Ox 98 F 115 H 16 128/87 100 05/12/19 12:44 05/12/19 12:44 05/12/19 12:44 05/12/19 12:44 05/12/19 12:44 - Physical Exam Comments: Healthy-appearing, wearing compression pants, lying prone on bed Heart RRR no MGR Lungs CTAB Abdomen tender to palpation to all de la fuente, ecchymoses below sternum and under breasts Buttocks swollen and firm with no bruising noted 3cm circular bruise noted to L posterior lateral knee BLE full ROM, no pedal edema or unilateral swelling, neurovascular intact, moving spontaneously, seen standing and ambulating General Appearance: Yes: Nourished, Appropriately Dressed. No: Apparent Distress HEENT: positive: EOMI, Normal Voice, Pharynx Normal, Hearing Grossly Normal. negative: Scleral Icterus (R), Scleral Icterus (L), Muffled/Hoarse voice, Pharyngeal Erythema, Tonsillar Exudate, Tonsillar Erythema Neck: positive: Normal Thyroid, Supple. negative: Tender, Rigid, Decreased range of motion, Lymphadenopathy (R), Lymphadenopathy (L) Respiratory/Chest: positive: Lungs Clear, Normal Breath Sounds. negative: Chest Tender, Respiratory Distress, Accessory Muscle Use, Crackles, Rales, Rhonchi, Stridor, Wheezing Cardiovascular: positive: Regular Rhythm, Regular Rate Gastrointestinal/Abdominal: positive: Normal Bowel Sounds, Tender (light palpation to all de la fuente), Flat, Soft, Distended, Other (bruising and swelling noted to abdomen, mostly under breasts). negative: Organomegaly, Pulsatile Mass , Hernia Musculoskeletal: positive: Normal Inspection. negative: CVA Tenderness Integumentary: positive: Normal Color, Dry, Warm, Bruising (posterior L knee, chest, no bruising to buttocks) Neurologic: positive: Fully Oriented, Alert, Normal Mood/Affect, Normal Response , Motor Strength / ED Treatment Course - LABORATORY CBC & Chemistry Diagram: 05/12/19 13:38 05/12/19 13:38 Medical Decision Making - Medical Decision Making 05/12/19 13:19 Vero Austin is an otherwise healthy 28F who had an abdominal liposuction and BBL buttock enhancement 5 days ago and is not presenting with nausea, shortness of breath, and pain in her abdomen and buttocks. Presentation concerning for shortness of breath PE given recent surgery and increased PE risk. Concerned for Tylenol overdose given frequent use. Evaluating broadly for more common sources of abdominal pain, infection. Abdomen and buttocks are swollen with mild bruising but no pain out of proportion or evidence of bleeding of further injury. CMP CBC acetaminophen ECG BLE dopplers for r/o PE 1L NS 4mg Reglan IV 05/12/19 15:04 Unable to tolerate BLE Dopplers 2/2 buttock pain. D-dimer sent, >5000 consistent with post-op vs. VTE No other lab abnormalities, Hgb 8 down from 11 last time seen, possible SOB 2/2 Hgb drop. CTA ordered 05/12/19 18:32 CTA shows no evidence of PE, mild soft tissue swelling consistent with surgery Nausea controlled, in no acute distress Stable to be discharged home with PMD f/u. Discharge - Discharge Information Problems reviewed: Yes Clinical Impression/Diagnosis: Shortness of breath, Postoperative abdominal pain, Buttock pain Anemia Qualifiers: Anemia type: unspecified type Qualified Code(s): D64.9 - Anemia, unspecified Condition: Stable Disposition: HOME - Additional Discharge Information Prescriptions: Ondansetron [Zofran *Odt*] 4 mg SL BID PRN #6 od.tablet PRN Reason: Nausea - Follow up/Referral Referrals: Fabian Napoles MD [Primary Care Provider] - - Patient Discharge Instructions Additional Instructions: Today you were evaluated for shortness of breath, nausea, and pain after your surgery on Wednesday. You blood labs do not show any evidence of electrolyte abnormalities or infection, but you do have a low hemoglobin count consistent with anemia, most- likely after your procedure. Your CT scan shows that you do not have any blood clots in your lungs that could be causing shortness of breath. Your shortness of breath is likely due to shallow breathing after your procedure or possible blood loss during the procedure causing anemia. For your nausea and headache, we gave you a medication called Reglan that improved your symptoms, and some IV fluids. Please return to see your primary doctor in the next 3 days for further care and follow-up for your shortness of breath as possibly being caused by anemia. If you experience worsening difficulty breathing, chest pain, dizziness, or have any fever/chills or worsening bruising, please return to the emergency room. - Post Discharge Activity
[2019-05-12] MEDS ORDERED: SODIUM CHLORIDE 0.9% 500 ML INFUS.BAG IV ONE (13:28)
[2019-05-12] MEDS ORDERED: METOCLOPRAMIDE HCL INJECTION 10 MG/2 ML VIAL IVPB ONE (13:28)
[2019-05-12] MEDS ORDERED: METOCLOPRAMIDE HCL INJECTION 10 MG/2 ML VIAL ONE (13:43)
--- NOTE | 2019-05-12 13:51 | PDOC ---
Attending Attestation - Resident Resident Name: Ko Jean-Baptiste - ED Attending Attestation I have performed the following: I have examined & evaluated the patient, The case was reviewed & discussed with the resident, I agree w/resident's findings & plan, Exceptions are as noted - HPI HPI: 05/12/19 13:47 28y F no pmhx presents with sob, nausea, and bruising. Pt had abdominoplasty and luxembourger butt lift on wednesday and pt was doing well until yesterday, when she started feeling shortness, diaphoresis since yesterday. Patient states that she feels occasional palpitations and feels a little chest tightness. Patient also feels a bit nauseous. She denies any chest pain, Abdominal pain, diarrhea , BPR, dysuria. Patient does note a little bit of bruising on her left calf, States that she did have some pain there couple days ago but none currently. Patient denies any cough, hemoptysis, fevers, chills taking percocet (1 perc q 4 hr) and tylenol (1000mg) - Physicial Exam PE: 05/12/19 15:44 Physical Exam GENERAL: The patient is awake, alert, and fully oriented, Nontoxic - in no acute distress. HEAD: Normocephalic, atraumatic. EYES: extraocular movements intact, sclera anicteric, conjunctiva clear. ENT: Normal voice, Moist mucous membranes. NECK: Normal range of motion, supple LUNGS: Breath sounds equal, clear to auscultation bilaterally. No wheezes, no rhonchi, no rales. HEART: Regular rate and rhythm, normal S1 and S2 without murmur, rub or gallop. ABDOMEN: Mild tenderness and ecchymosis noted on the patient's abdomen, clean, dry, intact, no discharge or erythema or induration, Buttock wound also appears clean dry and intact Without signs of infection EXTREMITIES: Normal range of motion, Small area of ecchymosis on the posterior lateral aspect of the right knee, Negative Homans, no calf tenderness bilaterally, No significant edema noted NEUROLOGICAL: No facial assymetry, Normal speech, Moving all 4 extremities spontaneously symmetrically PSYCH: Normal mood, normal affect. SKIN: Warm, Dry, normal turgor, - Medical Decision Making 05/12/19 15:44 Will obtain blood work to rule out anemia, metabolic derangement, consider pe Heart Score/ECG Review - ECG Impressions Comment:: 05/12/19 15:47 Twelve-lead EKG was performed and reviewed by me. There is normal sinus rhythm with a rate of 106 The axis is normal. The intervals are normal. There is normal R wave progression Nonspecific T wave abnormality
[2019-05-12 13:56] LABS: BASO % 0.4 % (0-2.0); EOS % 3.1 % (0-4.5); HEMATOCRIT 24.9 % (32.4-45.2); LYMPH % 21.1 % (8-40); MCH 26.6 pg (25.7-33.7); MCHC 32.4 g/dl (32.0-36.0); MEAN CELL VOLUME 82.2 fl (80-96); MEAN PLT VOLUME 7.8 fl (7.5-11.1); MONO % 5.3 % (3.8-10.2); NEUT % 70.1 % (42.8-82.8); PLATELET COUNT 321 K/MM3 (134-434); RBC 3.03 M/mm3 (3.60-5.2); RDW 16.4 % (11.6-15.6); WHITE BLOOD COUNT 8.2 K/mm3 (4.0-10.8)
[2019-05-12 14:00] LABS: ALBUMIN 2.9 g/dl (3.4-5.0); BILIRUBIN,TOTAL 0.5 mg/dl (0.2-1); CALCIUM 7.8 mg/dl (8.5-10); CREATININE 0.5 mg/dl (0.55-1.3); POTASSIUM 3.9 mmol/L (3.5-5.1); TOT PROT 5.4 g/dl (6.4-8.2)
[2019-05-12 15:43] VITALS: BP 107/66; PULSE 104; TEMP 98.4
--- NOTE | 2019-05-14 16:47 | EKG ---
Test Reason : Blood Pressure : / mmHG Vent. Rate : 106 BPM Atrial Rate : 106 BPM P-R Int : 124 ms QRS Dur : 072 ms QT Int : 330 ms P-R-T Axes : 049 068 012 degrees QTc Int : 438 ms SINUS TACHYCARDIA NONSPECIFIC T WAVE ABNORMALITY ABNORMAL ECG NO PREVIOUS ECGS AVAILABLE Confirmed by CLARK BARRY MD ([id number]) on 05/14/2019 4:46:53 PM Referred By: Physician Emergency Dept Confirmed By:CLARK BARRY MD
== END 2019-05-12 19:18 | disposition home or self-care (01) ==
LOC: FER 12:36
PROC: 3E033GC Introduction of Other Therapeutic Substance into Peripheral Vein, Percutaneous Approach (ICD-10-PCS; principal; 2019-05-12)
DX: D64.9 Anemia, unspecified (principal); R06.02 Shortness of breath; G89.18 Other acute postprocedural pain
CPT/HCPCS: 36415; 71275-TC; 80053; 80307; 84703; 85025; 85379; 93005; 96374; 99283-25

== ENCOUNTER 2019-07-18 16:01 | Emergency (ER) | payer OTHER ==
[2019-07-18 16:18] VITALS: BP 142/92; PULSE 90; TEMP 98.1; BMI 26.5
--- NOTE | 2019-07-18 16:20 | PDOC ---
Rapid Medical Evaluation Time Seen by Provider: 07/18/19 16:17 Medical Evaluation: Allergies Allergy/AdvReac Type Severity Reaction Status Date / Time No Known Allergies Allergy Verified 05/12/19 12:44 07/18/19 16:17 This patient had a brief physical exam by me cc:vaginal bleeding HPI: Patient reports vaginal bleeding x 2-3 days. S/p lipo so with surgery all over abdomen PE: NAD unlabored breathing no cva tenderness orders: urine and u/a This patient will proceed to main emergency room for further evaluation
--- NOTE | 2019-07-18 17:55 | PDOC ---
History of Present Illness - General Chief Complaint: Urinary Problem Stated Complaint: URINARY PROBLEM Time Seen by Provider: 07/18/19 16:17 - History of Present Illness Initial Comments: 07/18/19 17:54 28-year-old female with hematuria since this morning. She denies any chance of . She has no back pain. Her last menstrual period was about 2 weeks ago. Past History - Past Medical History Allergies/Adverse Reactions: Allergies Allergy/AdvReac Type Severity Reaction Status Date / Time No Known Allergies Allergy Verified 07/18/19 16:18 Home Medications: Ambulatory Orders Nitrofurantoin Monohyd/M-Cryst [Macrobid -] 100 mg PO BID #14 capsule 07/18/19 Anemia: Yes (iron deficiency anemia) Asthma: No Cancer: No CVA: No COPD: No CHF: No DVT: No Dementia: No Diabetes: No Dialysis: No - Surgical History Appendectomy: Yes - Immunization History Immunization Up to Date: Yes - Psycho Social/Smoking Cessation Hx Smoking History: Never smoked Have you smoked in the past 12 months: No Number of Cigarettes Smoked Daily: 0 'Breaking Loose' booklet given: 08/21/16 Hx Alcohol Use: No Drug/Substance Use Hx: No Substance Use Type: None Review of Systems - Review of Systems Constitutional: No: Fever *Physical Exam - Vital Signs Last Vital Signs Temp Pulse Resp BP Pulse Ox 98.1 F 90 18 142/92 98 07/18/19 16:13 07/18/19 16:13 07/18/19 16:13 07/18/19 16:13 07/18/19 16:13 - Physical Exam 07/18/19 17:54 GENERAL: The patient is awake, alert, and fully oriented, in no acute distress. HEAD: Normal with no signs of trauma. EYES: sclera anicteric, conjunctiva clear. ENT: Ears normal tympanic membranes normal oropharynx clear uvula midline NECK: Normal range of motion ABDOMEN: Soft, nontender, normoactive bowel sounds. No guarding, no rebound. No masses. No CVA tenderness EXTREMITIES: Normal range of motion, no edema. No clubbing or cyanosis. No cords, erythema, or tenderness. NEUROLOGICAL: Cranial nerves II through XII grossly intact. Normal speech, normal gait. PSYCH: Normal mood, normal affect. SKIN: Warm, Dry, normal turgor, no rashes or lesions noted. Medical Decision Making - Medical Decision Making 07/18/19 19:45 Urinary symptoms with positive UA we will treat with Macrobid Discharge - Discharge Information Problems reviewed: Yes Clinical Impression/Diagnosis: UTI (urinary tract infection) Condition: Stable Disposition: HOME - Admission No - Follow up/Referral Referrals: Fabian Napoles MD [Primary Care Provider] - - Patient Discharge Instructions Additional Instructions: Please take the antibiotics as directed and return to the emergency room should symptoms worsen. Without fail follow-up with your primary care physician in 1 to 2 days for further evaluation and treatment options. - Post Discharge Activity
[2019-07-18 19:32] LABS: EPI CELLS 2.4 /HPF (0-5/HPF); HYALINE CASTS 1 /lpf (0-8); URINE APPEARANCE CLEAR; URINE BACTERIA 63.3 /hpf (NEGATIVE); URINE BILIRUBIN NEGATIVE (NEGATIVE); URINE COLOR YELLOW; URINE GLUCOSE (UA) NEGATIVE (NEGATIVE); URINE KETONE NEGATIVE (NEGATIVE); URINE LEUK ESTERASE NEGATIVE (NEGATIVE); URINE NITRITE NEGATIVE (NEGATIVE); URINE PROTEIN NEGATIVE (NEGATIVE); URINE RBC 329 /hpf (0-4); URINE UROBILINOGEN 0.2 mg/dL (0.2-1.0); URINE WBC 2 /hpf (0-5)
== END 2019-07-18 19:56 | disposition home or self-care (01) ==
LOC: JERFT 16:01
DX: N39.0 Urinary tract infection, site not specified (principal); D50.9 Iron deficiency anemia, unspecified
CPT/HCPCS: 81003; 84703; 87086; 99282-25

== ENCOUNTER 2020-06-23 10:45 | Emergency (ER) | payer OTHER ==
[2020-06-23 10:51] VITALS: BP 107/68; PULSE 91; TEMP 97.8; BMI 30.1
[2020-06-23 11:39] LABS: BASO % 0.7 % (0-2.0); EOS % 2.7 % (0-4.5); HEMATOCRIT 37.3 % (32.4-45.2); LYMPH % 29.5 % (8-40); MCH 26.6 pg (25.7-33.7); MCHC 32.2 g/dl (32.0-36.0); MEAN CELL VOLUME 82.6 fl (80-96); MEAN PLT VOLUME 7.9 fl (7.5-11.1); NEUT % 60.1 % (42.8-82.8); PLATELET COUNT 272 K/MM3 (134-434); RBC 4.52 M/mm3 (3.60-5.2); RDW 17.3 % (11.6-15.6); WHITE BLOOD COUNT 6.5 K/mm3 (4.0-10.0)
[2020-06-23 12:01] LABS: EPI CELLS 36 /uL (0-25.1); HYALINE CASTS 1 /uL (0-3.1); URINE APPEARANCE CLEAR; URINE BACTERIA 695 /uL (0-1359); URINE BILIRUBIN NEGATIVE (NEGATIVE); URINE COLOR YELLOW; URINE GLUCOSE (UA) NEGATIVE (NEGATIVE); URINE KETONE NEGATIVE (NEGATIVE); URINE LEUK ESTERASE NEGATIVE (NEGATIVE); URINE NITRITE NEGATIVE (NEGATIVE); URINE PROTEIN NEGATIVE (NEGATIVE); URINE RBC 19 /uL (0-23.9); URINE UROBILINOGEN 0.2 mg/dL (0.2-1.0); URINE WBC 23 /uL (0-25.8)
== END 2020-06-23 13:25 | disposition home or self-care (01) ==
LOC: JER 10:45
DX: O03.9 Complete or unspecified spontaneous abortion without complication (principal)
CPT/HCPCS: 36415; 76817-TC; 81003; 84702; 85025; 86850; 86900; 86901; 87086; 99284-25

== ENCOUNTER 2020-06-30 06:56 | Emergency (ER) | payer OTHER ==
[2020-06-30 07:12] VITALS: BP 121/79; PULSE 85; TEMP 97.8; BMI 30.1
== END 2020-06-30 10:26 | disposition home or self-care (01) ==
LOC: JER 06:56
DX: O03.9 Complete or unspecified spontaneous abortion without complication (principal)
CPT/HCPCS: 36415; 76817-TC; 84702; 99284-25

== ENCOUNTER 2020-10-12 01:03 | Emergency (ER) | payer OTHER ==
[2020-10-12 01:14] VITALS: BP 112/69; BMI 30.2
[2020-10-12 01:15] VITALS: TEMP 98.7
[2020-10-12] MEDS ORDERED: ACETAMINOPHEN 325 MG TABLET (FP) PO ONE (01:38)
[2020-10-12] MEDS ORDERED: ACETAMINOPHEN 325 MG TABLET (FP) ONE (02:10)
[2020-10-12 02:33] LABS: EPI CELLS 31 /uL (0-25.1); HYALINE CASTS 1 /uL (0-3.1); PH,URINE 5.5 (5.0-8.0); URINE APPEARANCE CLEAR; URINE BACTERIA 1247 /uL (0-1359); URINE BILIRUBIN NEGATIVE (NEGATIVE); URINE COLOR YELLOW; URINE GLUCOSE (UA) NEGATIVE (NEGATIVE); URINE KETONE NEGATIVE (NEGATIVE); URINE LEUK ESTERASE TRACE (NEGATIVE); URINE NITRITE NEGATIVE (NEGATIVE); URINE PROTEIN NEGATIVE (NEGATIVE); URINE RBC 22 /uL (0-23.9); URINE WBC 32 /uL (0-25.8)
[2020-10-12 03:34] VITALS: PULSE 88
== END 2020-10-12 03:31 | disposition home or self-care (01) ==
LOC: JER 01:03
DX: R10.32 Left lower quadrant pain (principal)
CPT/HCPCS: 36415; 76817-TC; 81003; 84702; 87086; 99284-25

== ENCOUNTER 2020-11-23 07:09 | Inpatient (IN) | payer OTHER ==
[2020-11-23 07:32] VITALS: BMI 30.5
[2020-11-23] MEDS ORDERED: SODIUM CHLORIDE 0.9% 500 ML INFUS.BAG IV ONE (07:54)
[2020-11-23 08:14] LABS: BASO % 0.2 % (0-2.0); EOS % 0.1 % (0-4.5); HEMATOCRIT 29.5 % (32.4-45.2); HEMOGLOBIN 9.7 GM/dL (10.7-15.3); LYMPH % 13.8 % (8-40); MCH 27.6 pg (25.7-33.7); MCHC 32.8 g/dl (32.0-36.0); MEAN PLT VOLUME 8.3 fl (7.5-11.1); MONO % 4.8 % (3.8-10.2); NEUT % 81.1 % (42.8-82.8); PLATELET COUNT 265 K/MM3 (134-434); RBC 3.51 M/mm3 (3.60-5.2); RDW 16.2 % (11.6-15.6); WHITE BLOOD COUNT 15.8 K/mm3 (4.0-10.0)
[2020-11-23 08:16] LABS: INR 1.26 (0.83-1.09); PROTHROMBIN TIME (PATIENT) 15.2 SEC (9.7-13.0)
[2020-11-23 08:18] LABS: ALBUMIN 3.2 g/dl (3.4-5.0); BLOOD UREA NITROGEN 17.3 mg/dL (7-18)
[2020-11-23 08:19] LABS: ACTIVATED PTT 24.4 SECONDS (25.2-36.5)
[2020-11-23 08:21] LABS: CREATININE 0.8 mg/dL (0.55-1.3)
[2020-11-23 08:22] LABS: BILIRUBIN,TOTAL 0.2 mg/dL (0.2-1); TOT PROT 6.1 g/dl (6.4-8.2)
[2020-11-23] MEDS ORDERED: ACETAMINOPHEN 1000 MG/100 ML VIAL (NON FORMULARY) IVPB ONE (09:29)
[2020-11-23] MEDS ORDERED: ACETAMINOPHEN INJECTION 100 ML IVPB ONE (09:38)
[2020-11-23 12:46] LABS: EPI CELLS >36 /uL (0-25.1); HYALINE CASTS 3 /uL (0-3.1); PH,URINE 5.5 (5.0-8.0); URINE APPEARANCE CLOUDY; URINE BACTERIA 153 /uL (0-1359); URINE BILIRUBIN NEGATIVE (NEGATIVE); URINE COLOR YELLOW; URINE GLUCOSE (UA) NEGATIVE (NEGATIVE); URINE KETONE NEGATIVE (NEGATIVE); URINE LEUK ESTERASE NEGATIVE (NEGATIVE); URINE NITRITE NEGATIVE (NEGATIVE); URINE PROTEIN TRACE (NEGATIVE); URINE RBC 1719 /uL (0-23.9); URINE UROBILINOGEN 0.2 mg/dL (0.2-1.0)
[2020-11-23 13:27] LABS: BASO % 0.2 % (0-2.0); EOS % 0.1 % (0-4.5); HEMATOCRIT 25.5 % (32.4-45.2); HEMOGLOBIN 8.4 GM/dL (10.7-15.3); LYMPH % 19.2 % (8-40); MCH 27.5 pg (25.7-33.7); MCHC 32.9 g/dl (32.0-36.0); MEAN CELL VOLUME 83.6 fl (80-96); MEAN PLT VOLUME 8.2 fl (7.5-11.1); MONO % 4.4 % (3.8-10.2); NEUT % 76.1 % (42.8-82.8); PLATELET COUNT 223 K/MM3 (134-434); RBC 3.05 M/mm3 (3.60-5.2); RDW 16.3 % (11.6-15.6); WHITE BLOOD COUNT 13.3 K/mm3 (4.0-10.0)
[2020-11-23] MEDS ORDERED: METHYLERGONOVINE MALEATE 0.2 MG TABLET (FP) PO ONE (13:52)
[2020-11-23 14:29] LABS: URINE WBC 97.7 /uL (0-25.8)
[2020-11-23] MEDS ORDERED: DEXAMETHASONE SOD PHOSPHATE 4 MG/1 ML VIAL ONE (16:17)
[2020-11-23] MEDS ORDERED: LIDOCAINE HCL/PF 2% SDV 5ML VIAL ONE (16:17)
[2020-11-23] MEDS ORDERED: MIDAZOLAM HCL 2 MG/2 ML SINGLE DOSE VIAL ONE (16:18)
[2020-11-23] MEDS ORDERED: PROPOFOL 20 ML ONE (16:18)
[2020-11-23] MEDS ORDERED: PROMETHAZINE HCL 25 MG/1 ML VIAL IVPUSH PRN (16:34)
[2020-11-23] MEDS ORDERED: METHYLERGONOVINE MALEATE 0.2 MG/1 ML AMP IM ONE (16:40)
[2020-11-23] MEDS ORDERED: LACTATED RINGERS SOLUTION 1,000 ML IV SCH (16:45)
[2020-11-23] MEDS ORDERED: ACETAMINOPHEN 325 MG TABLET (FP) PO PRN (16:50)
[2020-11-23] MEDS ORDERED: IBUPROFEN 400 MG TABLET (FP) PO PRN (16:50)
[2020-11-23 18:33] VITALS: BP 117/61; PULSE 76; TEMP 98.8
== END 2020-11-23 22:10 | disposition home or self-care (01) | DRG 544 ==
LOC: JER 07:09 → JERBED 13:58 → J3W 18:29
PROVIDERS: ADMIT Obstetrics & Gynecology; ATTEND Obstetrics & Gynecology
PROC: 10D17ZZ Extraction of Products of Conception, Retained, Via Natural or Artificial Opening (ICD-10-PCS; principal; 2020-11-23 15:09)
DX: O03.4 Incomplete spontaneous abortion without complication (principal); D64.9 Anemia, unspecified
CPT/HCPCS: 36415; 76817-TC; 80053; 81003; 84702; 85025; 85610; 85730; 86850; 86900; 86901; 86922; 87086; 88305-TC; 93005; 93010; 94760; 99285-25; C9803; J0131; U0003; U0005

== ENCOUNTER 2023-02-06 22:34 | Emergency (ER) | payer OTHER ==
[2023-02-06 22:43] VITALS: BP 110/71; PULSE 81; RESP 18; TEMP 97.8; BMI 29.1
[2023-02-06] MEDS ORDERED: LACTATED RINGERS SOLUTION 1000 ML INFUS.BAG IV ONE (23:02)
[2023-02-06] MEDS ORDERED: ACETAMINOPHEN 1000 MG/100 ML BAG IVPB ONE (23:02)
[2023-02-06] MEDS ORDERED: MAG HYDROX/AL HYDROX/SIMETH -MYLANTA- ORAL SUSPENSION PO ONE (23:02)
[2023-02-06] MEDS ORDERED: FAMOTIDINE 20 MG/50 ML IVPB 20 MG/50 ML MG IVPB ONE ×2 (23:02→23:39)
[2023-02-06] MEDS ORDERED: ACETAMINOPHEN INJECTION 100 ML IVPB ONE (23:34)
[2023-02-06] MEDS ORDERED: MAG HYDROX/AL HYDROX/SIMETH 30 ML UNIT-DOSE CUP ONE (23:36)
[2023-02-07 00:01] LABS: BASO % 0.3 % (0-2.0); EOS % 1.5 % (0-4.5); HEMATOCRIT 40.2 % (32.4-45.2); HEMOGLOBIN 13.7 GM/dL (10.7-15.3); LYMPH % 30.3 % (8-40); MCH 29.5 pg (25.7-33.7); MEAN CELL VOLUME 86.8 fl (80-96); MEAN PLT VOLUME 7.6 fl (7.5-11.1); MONO % 6.8 % (3.8-10.2); NEUT % 61.1 % (42.8-82.8); PLATELET COUNT 253 10^3/uL (134-434); RBC 4.63 M/mm3 (3.60-5.2); RDW 13.6 % (11.6-15.6); WHITE BLOOD COUNT 9.4 K/mm3 (4.0-10.0)
[2023-02-07 00:04] LABS: EPI CELLS 20 /uL (0-25.1); HCG,QUALITATIVE URINE Negative; HYALINE CASTS 0 /uL (0-3.1); URINE APPEARANCE CLEAR; URINE BACTERIA 518 /uL (0-1359); URINE BILIRUBIN NEGATIVE (NEGATIVE); URINE COLOR YELLOW; URINE GLUCOSE (UA) NEGATIVE (NEGATIVE); URINE KETONE NEGATIVE (NEGATIVE); URINE LEUK ESTERASE NEGATIVE (NEGATIVE); URINE NITRITE NEGATIVE (NEGATIVE); URINE PROTEIN NEGATIVE (NEGATIVE); URINE RBC 34 /uL (0-23.9); URINE UROBILINOGEN 0.2 mg/dL (0.2-1.0); URINE WBC 8 /uL (0-25.8)
[2023-02-07 00:27] LABS: POTASSIUM 4.3 mmol/L (3.5-5.1)
[2023-02-07 00:29] LABS: CALCIUM 8.6 mg/dL (8.5-10.1)
[2023-02-07 00:30] LABS: ALBUMIN 3.6 g/dl (3.4-5.0); BLOOD UREA NITROGEN 13.4 mg/dL (7-18)
[2023-02-07 00:33] LABS: CREATININE 0.7 mg/dL (0.55-1.3)
[2023-02-07 00:34] LABS: BILIRUBIN,TOTAL 0.3 mg/dL (0.2-1); TOT PROT 6.9 g/dl (6.4-8.2)
[2023-02-07] MEDS ORDERED: POLYETHYLENE GLYCOL (HEALTHYLAX) 3350 17 GM PACKET PO SCH (00:45)
== END 2023-02-07 00:44 | disposition home or self-care (01) ==
LOC: JER 22:34
PROC: 3E033GC Introduction of Other Therapeutic Substance into Peripheral Vein, Percutaneous Approach (ICD-10-PCS; principal; 2023-02-06)
PROC: 3E033NZ Introduction of Analgesics, Hypnotics, Sedatives into Peripheral Vein, Percutaneous Approach (ICD-10-PCS; 2023-02-06)
DX: K59.00 Constipation, unspecified (principal); R14.1 Gas pain
CPT/HCPCS: 36415; 71046-TC-FY; 80053; 81003; 83690; 84484; 84703; 85025; 85379; 87086; 93005; 93010; 99285-25

== ENCOUNTER 2023-02-19 11:32 | Emergency (ER) | payer OTHER ==
[2023-02-19 11:43] VITALS: BP 104/71; PULSE 88; RESP 20; TEMP 98.9; BMI 29.3
[2023-02-19 14:22] LABS: HCG,QUALITATIVE URINE Negative
[2023-02-19 14:24] LABS: EPI CELLS >36 /uL (0-25.1); HYALINE CASTS 1 /uL (0-3.1); URINE APPEARANCE CLOUDY; URINE BACTERIA 501 /uL (0-1359); URINE BILIRUBIN NEGATIVE (NEGATIVE); URINE COLOR YELLOW; URINE GLUCOSE (UA) NEGATIVE (NEGATIVE); URINE KETONE NEGATIVE (NEGATIVE); URINE LEUK ESTERASE NEGATIVE (NEGATIVE); URINE NITRITE NEGATIVE (NEGATIVE); URINE PROTEIN NEGATIVE (NEGATIVE); URINE UROBILINOGEN 0.2 mg/dL (0.2-1.0); URINE WBC 7 /uL (0-25.8)
[2023-02-19 14:25] LABS: URINE RBC 15.7 /uL (0-23.9)
== END 2023-02-19 17:31 | disposition home or self-care (01) ==
LOC: JERFT 11:32 → JER 11:32 → JERFT 17:31
DX: R10.2 Pelvic and perineal pain (principal); R10.32 Left lower quadrant pain; N83.202 Unspecified ovarian cyst, left side
CPT/HCPCS: 76830-TC; 81003; 84703; 87086; 99284-25

== ENCOUNTER 2023-06-24 23:13 | Emergency (ER) | payer OTHER ==
[2023-06-24 23:17] VITALS: BP 112/75; PULSE 72; RESP 18; TEMP 98.3; BMI 30.7
[2023-06-25] MEDS ORDERED: LIDOCAINE 4% PATCH TP ONE ×2 (00:08→00:23)
[2023-06-25] MEDS ORDERED: KETOROLAC TROMETHAMINE 30 MG/1 ML VIAL IM ONE (00:08)
[2023-06-25] MEDS ORDERED: KETOROLAC TROMETHAMINE 30 MG/1 ML VIAL ONE (00:23)
[2023-06-25] MEDS ORDERED: LIDOCAINE PATCH REMOVAL MC SCH (22:00)
== END 2023-06-25 01:59 | disposition home or self-care (01) ==
LOC: JER 23:13
PROC: 3E0233Z Introduction of Anti-inflammatory into Muscle, Percutaneous Approach (ICD-10-PCS; principal; 2023-06-25)
DX: M79.642 Pain in left hand (principal); M25.512 Pain in left shoulder
CPT/HCPCS: 71046-TC-FY; 73030-TC-LT-FY; 93005; 93010; 99284-25